=== PATIENT | female | born 1950 | race Asian ===

== ENCOUNTER 2018-11-16 18:17 | Emergency (ER) | payer MEDICARE ==
[~2018-11-16] VITALS: Ht 157.5 cm; Wt 52.2 kg
[2018-11-16] MEDS ORDERED: GLIPIZIDE5 MG ORAL (18:19)
[2018-11-16] MEDS ORDERED: METFORMIN HCL500 M1 ORAL (18:19)
--- NOTE | 2018-11-16 18:20 | NUR ---
ED Nurse Note: Pt came to Ed from home via ambulance RA [id number]. Pt is A&Ox4, c/o productive cough and chest tightness for 9 days. Denies chest pain. Pt is sob, SPo2 99% on room air. VSS.
[2018-11-16 18:25] VITALS: BP 102/66
[2018-11-16 19:02] LABS: BASOPHILS % (AUTO) 0.7 % (0.0-2.0); EOSINOPHILS % (AUTO) 0.9 % (0.0-3.0); HEMATOCRIT 39.2 % (37.0-47.0); HEMOGLOBIN 13.6 G/DL (12.0-16.0); LYMPHOCYTES % (AUTO) 10.5 % (20.0-45.0); MEAN CORPUSCULAR VOLUME 87 FL (80-99); MONOCYTES % (AUTO) 8.5 % (1.0-10.0); NEUTROPHILS % (AUTO) 79.4 % (45.0-75.0); PLATELET COUNT 255 K/UL (150-450); RED CELL DISTRIBUTION WIDTH 12.4 % (11.6-14.8); WHITE BLOOD COUNT 12.2 K/UL (4.8-10.8)
--- NOTE | 2018-11-16 19:08 | NUR ---
HAND-OFF: Report given to JOSE Scanlon.
[2018-11-16] MEDS ORDERED: Albuterol ud Inhalation HHN ONE (19:15)
--- NOTE | 2018-11-16 19:15 | NUR ---
ED Nurse Note: Got report from JOSE Blair. RT by bed side, patient is geting treartment. Patient states "it's very difficulty to clean outsecreation".
[2018-11-16 19:18] LABS: ANION GAP 10 mmol/L (5-15); BLOOD UREA NITROGEN 13 mg/dL (7-18); CALCIUM 9.3 MG/DL (8.5-10.1); CARBON DIOXIDE 24 MMOL/L (21-32); CHLORIDE 101 MMOL/L (98-107); POTASSIUM 4.4 MMOL/L (3.5-5.1); SODIUM 135 MMOL/L (136-145)
[2018-11-16 19:32] LABS: ALANINE AMINOTRANSFERASE 13 U/L (12-78); ALBUMIN 3.1 G/DL (3.4-5.0); ALBUMIN/GLOBULIN RATIO 0.8 (1.0-2.7); ALKALINE PHOSPHATASE 70 U/L (46-116); ASPARTATE AMINO TRANSFERASE 15 U/L (15-37); BILIRUBIN,TOTAL 0.5 MG/DL (0.2-1.0); CKMB 0.6 NG/ML (0.0-3.6); CREATINE KINASE 28 U/L (26-308)
--- NOTE | 2018-11-16 19:36 | Emergency Room Report ---
History of Present Illness General Chief Complaint: Upper Respiratory Illness Source: Patient, EMS Present Illness HPI Patient presents with complaints of shortness of breath reports that she was just discharged from [facility] for the same condition as she has now Has been having increased cough shortness of breath Denies any vomiting or diarrhea denies any fevers Denies any recent travel Initially the patient presents in some acute distress and most of the past history is not able to be obtained Allergies: Coded Allergies: NSAIDS (NON-STEROIDAL ANTI-INFLAMMA (Verified Allergy, Mild, 11/16/18) PENICILLINS (Verified Allergy, Unknown, 11/16/18) Patient History Past Medical History: see triage record Pertinent Family History: none Reviewed Nursing Documentation: PMH: Agreed; PSxH: Agreed Nursing Documentation-PMH Past Medical History: No History, Except For Hx Hypertension: Yes Hx Asthma: Yes Hx Diabetes: Yes Review of Systems All Other Systems: negative except mentioned in HPI Physical Exam Vital Signs Date Time Temp Pulse Resp B/P (MAP) Pulse Ox O2 Delivery O2 Flow Rate FiO2 11/16/18 18:17 97.3 91 15 95 Room Air 11/16/18 18:25 102/66 11/16/18 19:10 21 Sp02 EP Interpretation: reviewed, normal General Appearance: moderate distress - Short of breath Head: normocephalic, atraumatic Eyes: bilateral eye PERRL, bilateral eye EOMI ENT: normal pharynx Neck: supple Respiratory: crackles - Bilaterally, tachypneic Cardiovascular #1: regular rate, rhythm Gastrointestinal: non tender, soft Genitourinary: no CVA tenderness Musculoskeletal: normal inspection Neurologic: alert, oriented x3, responsive Skin: normal color, no rash Lymphatic: no adenopathy Medical Decision Making Diagnostic Impression: Primary Impression: CHF (congestive heart failure) ER Course Patient is a fairly complex patient with multiple differential to consideration including but not limited to cardiac cardiopulmonary and vascular emergencies Patient's x-ray shows evidence of CHF BNP also significantly elevated Patient received Lasix prior to this also required breathing treatment and appears to have done significantly better At this time requires admission patient is medically stabilized for appropriate transfer to primary facility Labs Test 11/16/18 18:45 White Blood Count 12.2 K/UL (4.8-10.8) Red Blood Count 4.50 M/UL (4.20-5.40) Hemoglobin 13.6 G/DL (12.0-16.0) Hematocrit 39.2 % (37.0-47.0) Mean Corpuscular Volume 87 FL (80-99) Mean Corpuscular Hemoglobin 30.2 PG (27.0-31.0) Mean Corpuscular Hemoglobin Concent 34.7 G/DL (32.0-36.0) Red Cell Distribution Width 12.4 % (11.6-14.8) Platelet Count 255 K/UL (150-450) Mean Platelet Volume 6.2 FL (6.5-10.1) Neutrophils (%) (Auto) 79.4 % (45.0-75.0) Lymphocytes (%) (Auto) 10.5 % (20.0-45.0) Monocytes (%) (Auto) 8.5 % (1.0-10.0) Eosinophils (%) (Auto) 0.9 % (0.0-3.0) Basophils (%) (Auto) 0.7 % (0.0-2.0) Sodium Level 135 MMOL/L (136-145) Potassium Level 4.4 MMOL/L (3.5-5.1) Chloride Level 101 MMOL/L (98-107) Carbon Dioxide Level 24 MMOL/L (21-32) Anion Gap 10 mmol/L (5-15) Blood Urea Nitrogen 13 mg/dL (7-18) Creatinine 1.0 MG/DL (0.55-1.30) Estimat Glomerular Filtration Rate 54.8 mL/min (>60) Glucose Level 259 MG/DL (74-106) Lactic Acid Level 1.60 mmol/L (0.4-2.0) Calcium Level 9.3 MG/DL (8.5-10.1) Total Bilirubin 0.5 MG/DL (0.2-1.0) Aspartate Amino Transf (AST/SGOT) 15 U/L (15-37) Alanine Aminotransferase (ALT/SGPT) 13 U/L (12-78) Alkaline Phosphatase 70 U/L (46-116) Total Creatine Kinase 28 U/L (26-308) Creatine Kinase MB 0.6 NG/ML (0.0-3.6) Creatine Kinase MB Relative Index 2.1 Troponin I 0.017 ng/mL (0.000-0.056) Pro-B-Type Natriuretic Peptide 15310 pg/mL (0-125) Total Protein 7.1 G/DL (6.4-8.2) Albumin 3.1 G/DL (3.4-5.0) Globulin 4.0 g/dL Albumin/Globulin Ratio 0.8 (1.0-2.7) Lipase 590 U/L (73-393) EKG Diagnostic Results Rate: normal Rhythm: NSR ST Segments: other - Nonspecific interventricular block nonspecific ST and T- wave changes Rhythm Strip Diag. Results EP Interpretation: yes Rate: 88 Rhythm: NSR, no PVC's, no ectopy Chest X-Ray Diagnostic Results Chest X-Ray Diagnostic Results : Chest X-Ray Ordered: Yes # of Views/Limited/Complete: 1 View Indication: Shortness of Breath EP Interpretation: Yes Interpretation: no consolidation, no effusion, other - Cardiomegaly, pulmonary congestion Impression: Other - CHF Electronically Signed by: Alyx Werner DO Last Vital Signs Date Time Temp Pulse Resp B/P (MAP) Pulse Ox O2 Delivery O2 Flow Rate FiO2 11/16/18 19:23 87 18 100 Room Air 21 11/16/18 18:25 97.4 102/66 Status: improved Disposition: XFER SHT-TRM HOSP Condition: Improved Referrals: NOT CHOSEN IPA/,REFERRING (PCP) Alyx Werner DO November 16, 2018 19:36
[2018-11-16 23:13] VITALS: BP 105/65
[2018-11-16 23:32] VITALS: BP 115/67
--- NOTE | 2018-11-16 23:40 | NUR ---
ED Nurse Note: Patient was transfered to [facility] by [facility] ambulance. AAO x4, VSS at this time. All petient's belongings were transfered with the patient.
--- NOTE | 2018-11-17 11:27 | Diagnostic Imaging Report ---
Indication: Dyspnea Comparison: None A single view chest radiograph was obtained. Findings: No definite infiltrate or pulmonary vascular congestion identified. There are surgical clips in the right axilla. The heart is enlarged. The aorta is mildly enlarged consistent with atherosclerotic vascular disease. The bones are osteopenic. Impression: No acute disease
--- NOTE | 2018-11-18 19:37 | Cardiology Report ---
APPROVED REPORT EKG Measurement Heart [id number] [id number] Normal sinus rhythm Possible Left atrial enlargement Left axis deviation Nonspecific intraventricular block Possible Anterolateral infarct, age undetermined Abnormal ECG
== END 2018-11-16 23:43 | disposition short-term general hospital (02) ==
LOC: EDBD 18:17 → EMR 18:49
DX: I50.9 Heart failure, unspecified (principal); R05 Cough; I11.0 Hypertensive heart disease with heart failure; E11.9 Type 2 diabetes mellitus without complications; Z88.0 Allergy status to penicillin; Z88.6 Allergy status to analgesic agent; I51.7 Cardiomegaly
CPT/HCPCS: 36415; 71045; 80053; 82550; 82553; 83605; 83690; 83880; 84484; 85025; 87040; 93005; 94640; 94664; 96374; 99285; J1940

== ENCOUNTER 2019-01-08 09:52 | Emergency (ER) | payer MEDICARE, MEDICAID ==
[~2019-01-08] VITALS: Ht 162.6 cm; Wt 52.2 kg
[~2019-01-08 09:52] MED LIST: GLIPIZIDE5 MG ORAL; METFORMIN HCL500 M1 ORAL
[2019-01-08 09:59] VITALS: BP 114/65
[2019-01-08] MEDS ORDERED: Solu-MEDROL 125mg Inj IVP ONE (10:00)
--- NOTE | 2019-01-08 10:04 | Emergency Room Report ---
History of Present Illness General Chief Complaint: Dyspnea/Respdistress Source: Medical Record Present Illness HPI 68-year-old female past medical history of COPD, hypertension, hyperlipidemia, diabetes presents with shortness of breath started 30 minutes prior to arrival she denies any aggravating or alleviating factors, she does endorse a constant shortness of breath, patient states she was exposed to secondhand smoke from her in the past, and was diagnosed with COPD, she denies any fevers chills cough congestion, chest pain, abdominal pain, she endorses only shortness of breath Allergies: Coded Allergies: NSAIDS (NON-STEROIDAL ANTI-INFLAMMA (Verified Allergy, Mild, 11/16/18) PENICILLINS (Verified Allergy, Unknown, 11/16/18) Patient History Past Medical History: see triage record Past Surgical History: other - Breast surgery Pertinent Family History: asthma, COPD Now: No Reviewed Nursing Documentation: PMH: Agreed; PSxH: Agreed Nursing Documentation-PMH Past Medical History: No History, Except For Hx Hypertension: Yes Hx Asthma: Yes Hx COPD: Yes Hx Diabetes: Yes Review of Systems Respiratory: Reports: shortness of breath Cardiovascular: Denies: chest pain All Other Systems: negative except mentioned in HPI Physical Exam Vital Signs Date Time Temp Pulse Resp B/P (MAP) Pulse Ox O2 Delivery O2 Flow Rate FiO2 01/08/19 09:48 88 35 114/65 (81) 100 Non-Rebreather 15.0 Sp02 EP Interpretation: reviewed, normal General Appearance: no apparent distress, alert, GCS 15, non-toxic Head: normocephalic, atraumatic Eyes: bilateral eye normal inspection, bilateral eye PERRL ENT: hearing grossly normal, normal pharynx, no angioedema, normal voice Neck: full range of motion, supple/symm/no masses Respiratory: chest non-tender, lungs clear, speaking full sentences, wheezing, expiration Cardiovascular #1: regular rate, rhythm, no edema Gastrointestinal: non tender, soft, non-distended, no guarding, no rebound Rectal: deferred Genitourinary: normal inspection, no CVA tenderness Musculoskeletal: back normal, gait/station normal, normal range of motion, non- tender, calf tenderness Neurologic: alert, oriented x3, responsive, motor strength/tone normal, sensory intact, speech normal Psychiatric: judgement/insight normal, memory normal, mood/affect normal, no suicidal/homicidal ideation Lymphatic: no adenopathy Medical Decision Making Diagnostic Impression: Primary Impression: COPD with exacerbation Additional Impression: CHF exacerbation ER Course Patient with history of CHF, COPD, wheezing on exam Chest x-ray shows no acute cardiopulmonary processes, large lung volumes, proBNP was elevated, patient improved with breathing treatments, will admit patient for COPD/CHF exacerbation Patient transferred to [facility] Patient accepted by Dr. Burns Laboratory Tests Test 01/08/19 10:03 White Blood Count 5.4 K/UL (4.8-10.8) Red Blood Count 4.15 M/UL (4.20-5.40) L Hemoglobin 12.9 G/DL (12.0-16.0) Hematocrit 39.0 % (37.0-47.0) Mean Corpuscular Volume 94 FL (80-99) Mean Corpuscular Hemoglobin 31.1 PG (27.0-31.0) H Mean Corpuscular Hemoglobin Concent 33.0 G/DL (32.0-36.0) Red Cell Distribution Width 12.8 % (11.6-14.8) Platelet Count 187 K/UL (150-450) Mean Platelet Volume 7.0 FL (6.5-10.1) Neutrophils (%) (Auto) 48.1 % (45.0-75.0) Lymphocytes (%) (Auto) 31.7 % (20.0-45.0) Monocytes (%) (Auto) 13.7 % (1.0-10.0) H Eosinophils (%) (Auto) 5.3 % (0.0-3.0) H Basophils (%) (Auto) 1.2 % (0.0-2.0) Sodium Level 144 MMOL/L (136-145) Potassium Level 3.9 MMOL/L (3.5-5.1) Chloride Level 108 MMOL/L (98-107) H Carbon Dioxide Level 27 MMOL/L (21-32) Anion Gap 10 mmol/L (5-15) Blood Urea Nitrogen 11 mg/dL (7-18) Creatinine 1.1 MG/DL (0.55-1.30) Estimate Glomerular Filtration Rate 49.1 mL/min (>60) Glucose Level 166 MG/DL (74-106) H Calcium Level 9.0 MG/DL (8.5-10.1) Total Bilirubin 0.8 MG/DL (0.2-1.0) Aspartate Amino Transferase (AST) 24 U/L (15-37) Alanine Aminotransferase (ALT) 8 U/L (12-78) L Alkaline Phosphatase 65 U/L (46-116) Total Creatine Kinase 54 U/L (26-308) Creatine Kinase MB 1.0 NG/ML (0.0-3.6) Creatine Kinase MB Relative Index 1.8 Troponin I 0.008 ng/mL (0.000-0.056) Pro-B-Type Natriuretic Peptide 8286 pg/mL (0-125) H Total Protein 6.8 G/DL (6.4-8.2) Albumin 3.4 G/DL (3.4-5.0) Globulin 3.4 g/dL Albumin/Globulin Ratio 1.0 (1.0-2.7) EKG Diagnostic Results EKG Time: 09:52 EP Interpretation: Normal sinus rhythm, left axis deviation, left bundle branch block Rate: normal Rhythm: NSR ST Segments: no acute changes ASA given to the pt in ED: No Chest X-Ray Diagnostic Results Chest X-Ray Diagnostic Results : Chest X-Ray Ordered: Yes # of Views/Limited/Complete: 1 View Indication: Shortness of Breath EP Interpretation: Yes Interpretation: no consolidation, no effusion, no acute cardiopulmonary disease Impression: No acute disease Electronically Signed by: Timmy Robb MD Last Vital Signs Date Time Temp Pulse Resp B/P (MAP) Pulse Ox O2 Delivery O2 Flow Rate FiO2 01/08/19 09:48 88 35 114/65 (81) 100 Non-Rebreather 15.0 Disposition: [facility] - [facility] Condition: Improved Timmy Robb M.D. Jan 08, 2019 10:04
[2019-01-08] MEDS ORDERED: FUROSEMIDE20 M1 ORAL (10:05)
[2019-01-08] MEDS ORDERED: cholesterol med (10:05)
--- NOTE | 2019-01-08 10:07 | NUR ---
ED Nurse Note: Pt BIBA from home due to SOB x 30 mins prior to arrival, no complaint of CP. 5mg Albuterol given by paramedics. Hx of Asthma, COPD. BS 163. SAT 99% RA upon arrival. Wheezing on inspiratory and expiratory. AOx4, VSS lillie. Will cont to monitor.
--- NOTE | 2019-01-08 10:08 | NUR ---
ED Nurse Note: X-ray tech at bedside for imaging.
[2019-01-08] MEDS: Ipratropium 0.02% Inh Soln 2.5ml UD HHN SCH ×3 (10:18→10:46)
[2019-01-08] MEDS: Albuterol ud Inhalation HHN SCH ×3 (10:18→10:46)
[2019-01-08 10:25] LABS: ANION GAP 10 mmol/L (5-15); BLOOD UREA NITROGEN 11 mg/dL (7-18); CARBON DIOXIDE 27 MMOL/L (21-32); CHLORIDE 108 MMOL/L (98-107); CREATININE 1.1 MG/DL (0.55-1.30); POTASSIUM 3.9 MMOL/L (3.5-5.1); SODIUM 144 MMOL/L (136-145)
[2019-01-08 10:28] LABS: BASOPHILS % (AUTO) 1.2 % (0.0-2.0); EOSINOPHILS % (AUTO) 5.3 % (0.0-3.0); HEMOGLOBIN 12.9 G/DL (12.0-16.0); LYMPHOCYTES % (AUTO) 31.7 % (20.0-45.0); MEAN CORPUSCULAR VOLUME 94 FL (80-99); MONOCYTES % (AUTO) 13.7 % (1.0-10.0); NEUTROPHILS % (AUTO) 48.1 % (45.0-75.0); PLATELET COUNT 187 K/UL (150-450); RED BLOOD COUNT 4.15 M/UL (4.20-5.40); RED CELL DISTRIBUTION WIDTH 12.8 % (11.6-14.8); WHITE BLOOD COUNT 5.4 K/UL (4.8-10.8)
[2019-01-08 10:38] LABS: ALANINE AMINOTRANSFERASE 8 U/L (12-78); ALBUMIN 3.4 G/DL (3.4-5.0); ALKALINE PHOSPHATASE 65 U/L (46-116); ASPARTATE AMINO TRANSFERASE 24 U/L (15-37); BILIRUBIN,TOTAL 0.8 MG/DL (0.2-1.0); CREATINE KINASE 54 U/L (26-308)
[2019-01-08 12:05] VITALS: BP 115/49
--- NOTE | 2019-01-08 14:03 | NUR ---
report given to brenda at [facility] patient will be transferd as [facility] by [facility]
[2019-01-08 14:10] VITALS: BP 130/80
--- NOTE | 2019-01-10 16:05 | Cardiology Report ---
APPROVED REPORT EKG Measurement Heart [id number] ME [id number] [id number] Normal sinus rhythm Possible Left atrial enlargement Left axis deviation Left bundle branch block Abnormal ECG
== END 2019-01-08 14:13 | disposition short-term general hospital (02) ==
LOC: EDBD 09:52 → EMR 10:24
DX: J44.1 Chronic obstructive pulmonary disease with (acute) exacerbation (principal); E11.9 Type 2 diabetes mellitus without complications; E78.5 Hyperlipidemia, unspecified; I11.0 Hypertensive heart disease with heart failure; I50.9 Heart failure, unspecified; Z88.0 Allergy status to penicillin; Z88.6 Allergy status to analgesic agent; I44.7 Left bundle-branch block, unspecified
CPT/HCPCS: 36415; 71045; 80053; 82550; 82553; 83880; 84484; 85025; 93005; 94640; 94664; 96374; 99284; J2930

== ENCOUNTER 2019-02-07 19:09 | Emergency (ER) | payer MEDICAID, MEDICARE ==
[~2019-02-07] VITALS: Ht 149.9 cm; Wt 52.2 kg
[~2019-02-07 19:09] MED LIST changes: +FUROSEMIDE20 M1 ORAL; +cholesterol med
--- NOTE | 2019-02-07 19:18 | Emergency Room Report ---
History of Present Illness General Chief Complaint: Altered Level of Consciousness Source: Patient, EMS Present Illness HPI 68-year-old female presents with generalized weakness, x3 days, patient states she feels febrile and more weak, no known aggravating or relieving factors, severity is severe, patient unable to give a proper history secondary to her clinical condition she feels very weak and tired. She thinks she may be coughing. Allergies: Coded Allergies: NSAIDS (NON-STEROIDAL ANTI-INFLAMMA (Verified Allergy, Mild, 11/16/18) PENICILLINS (Verified Allergy, Unknown, 11/16/18) Patient History Limited by: medical condition - Generalized weakness unable to give a full history AMS Past Medical History: see triage record Reviewed Nursing Documentation: PMH: Agreed; PSxH: Agreed Nursing Documentation-PMH Past Medical History: No History, Except For Hx Cardiac Problems: Yes Hx Hypertension: Yes Hx Asthma: Yes Hx Diabetes: Yes Review of Systems All Other Systems: limited - Generalized weakness unable to give a full history AMS Physical Exam Last 24 Hour Vital Signs Date Time Temp Pulse Resp B/P (MAP) Pulse Ox O2 Delivery O2 Flow Rate FiO2 02/07/19 19:20 82 16 Room Air 02/07/19 19:20 101.6 16 105/72 99 Room Air 02/07/19 19:04 82 16 105/72 (83) 99 Room Air Sp02 EP Interpretation: reviewed, normal General Appearance: alert, GCS 15, non-toxic, other - Tired appearing Head: normocephalic, atraumatic Eyes: bilateral eye PERRL, bilateral eye EOMI ENT: uvula midline, dry mucus membranes Neck: supple, thyroid normal, supple/symm/no masses Respiratory: lungs clear, no respiratory distress, no retraction, no accessory muscle use Cardiovascular #1: normal peripheral pulses, regular rate, rhythm, no edema, no gallop, no murmur Gastrointestinal: non tender, soft, no guarding, no rebound Musculoskeletal: normal inspection Neurologic: alert, responsive Psychiatric: mood/affect normal Skin: no rash, warm/dry Medical Decision Making Diagnostic Impression: Primary Impression: Sepsis Qualified Codes: A41.9 - Sepsis, unspecified organism Additional Impression: Right lower lobe pulmonary infiltrate ER Course 68-year-old female presents with weakness, x3 days, cough, patient found to have a right lower lobe pneumonia on chest x-ray. antibiotics started, patient febrile in the ED, will transfer patient to [place] Lactic acid normal Patient with right lower lobe pneumonia, patient to be admitted to [place], spoke with Dr. Rausch refer to call record Laboratory Tests Test 02/07/19 18:58 02/07/19 20:58 White Blood Count 6.7 K/UL (4.8-10.8) Red Blood Count 4.47 M/UL (4.20-5.40) Hemoglobin 13.4 G/DL (12.0-16.0) Hematocrit 40.7 % (37.0-47.0) Mean Corpuscular Volume 91 FL (80-99) Mean Corpuscular Hemoglobin 29.9 PG (27.0-31.0) Mean Corpuscular Hemoglobin Concent 32.8 G/DL (32.0-36.0) Red Cell Distribution Width 12.1 % (11.6-14.8) Platelet Count 205 K/UL (150-450) Mean Platelet Volume 5.8 FL (6.5-10.1) L Neutrophils (%) (Auto) 61.4 % (45.0-75.0) Lymphocytes (%) (Auto) 21.2 % (20.0-45.0) Monocytes (%) (Auto) 15.0 % (1.0-10.0) H Eosinophils (%) (Auto) 0.9 % (0.0-3.0) Basophils (%) (Auto) 1.6 % (0.0-2.0) Prothrombin Time 12.9 SEC (9.30-11.50) H Prothrombin Time INR 1.2 (0.9-1.1) H PTT 28 SEC (23-33) Sodium Level 133 MMOL/L (136-145) L Potassium Level 4.2 MMOL/L (3.5-5.1) Chloride Level 102 MMOL/L (98-107) Carbon Dioxide Level 23 MMOL/L (21-32) Anion Gap 8 mmol/L (5-15) Blood Urea Nitrogen 16 mg/dL (7-18) Creatinine 1.2 MG/DL (0.55-1.30) Estimate Glomerular Filtration Rate 44.4 mL/min (>60) Glucose Level 177 MG/DL (74-106) H Lactic Acid Level 1.90 mmol/L (0.4-2.0) Calcium Level 9.2 MG/DL (8.5-10.1) Phosphorus Level 2.8 MG/DL (2.5-4.9) Magnesium Level 1.4 MG/DL (1.8-2.4) L Total Bilirubin 1.3 MG/DL (0.2-1.0) H Direct Bilirubin 0.5 MG/DL (0.0-0.3) H Aspartate Amino Transferase (AST) 139 U/L (15-37) H Alanine Aminotransferase (ALT) 84 U/L (12-78) H Alkaline Phosphatase 68 U/L (46-116) Total Creatine Kinase 39 U/L (26-308) Creatine Kinase MB < 0.5 NG/ML (0.0-3.6) Creatine Kinase MB Relative Index 1.2 Troponin I 0.013 ng/mL (0.000-0.056) Pro-B-Type Natriuretic Peptide 89564 pg/mL (0-125) H Total Protein 7.1 G/DL (6.4-8.2) Albumin 3.5 G/DL (3.4-5.0) Globulin 3.6 g/dL Albumin/Globulin Ratio 1.0 (1.0-2.7) Lipase 389 U/L (73-393) Urine Color Pending Urine Appearance Pending Urine pH Pending Urine Specific [place] Pending Urine Protein Pending Urine Glucose (UA) Pending Urine Ketones Pending Urine Blood Pending Urine Nitrite Pending Urine Bilirubin Pending Urine Urobilinogen Pending Urine Leukocyte Esterase Pending EKG Diagnostic Results EKG Time: 19:19 EP Interpretation: NSR, rate 83, QTc 495, left axis deviation, no acute ST elevation Rate: normal Rhythm: NSR ST Segments: other - LBBB, no acute st elevations Rhythm Strip Diag. Results Rhythm Strip Time: 20:48 EP Interpretation: yes Rate: 80 Rhythm: NSR, no PVC's, no ectopy Chest X-Ray Diagnostic Results Chest X-Ray Diagnostic Results : Chest X-Ray Ordered: Yes # of Views/Limited/Complete: 1 View Indication: Shortness of Breath Interpretation: other - right lobe consolidation Impression: Other - right lobe pneumonia Last Vital Signs Date Time Temp Pulse Resp B/P (MAP) Pulse Ox O2 Delivery O2 Flow Rate FiO2 02/07/19 19:04 82 16 105/72 (83) 99 Room Air Disposition: XFER SHT-TRM [facility] - [place] Condition: Stable Timmy Robb MD Feb 07, 2019 19:18
[2019-02-07 19:20] VITALS: BP 105/72
--- NOTE | 2019-02-07 19:20 | NUR ---
ED Nurse Note: Patient was BIBA from home due to ALOC. Per daughter she was diagnosed with pneumonia 2 month ago, and they think it is pneumonia again. Patient presented with fever 101.6 rectal, other VSS at this time. AAO x2, skin is dry warm to touch, pt's BS 166. Patient has diminished lungs sownd in all 4 loabs.
--- NOTE | 2019-02-07 19:41 | Diagnostic Imaging Report ---
EXAM: XR Chest, 1 View CLINICAL HISTORY: AMS TECHNIQUE: Frontal view of the chest. COMPARISON: 01/08/19 chest x-ray FINDINGS: Lungs: Ill-defined patchy opacities in the bilateral lungs appear new. There is tenting of the right diaphragm suggesting right lower lobe atelectatic changes. Pleural space: Unremarkable. No pneumothorax. Heart: Slightly worse cardiomegaly and enlargement of the pulmonary arteries. Mediastinum: Unremarkable. Bones/joints: Unremarkable. Soft tissues: Right axillar surgical clips. IMPRESSION: Cardiomegaly and ill-defined bilateral patchy lung opacities.. Query developing pneumonitis or pneumonia.
[2019-02-07] MEDS ORDERED: Cefepime HCl 2 GM in D5W 55 ML IVPB ONE (19:45)
[2019-02-07] MEDS ORDERED: Vancomycin 1 GM in NS 275 ML IVPB ONE (19:45)
[2019-02-07 20:05] LABS: BASOPHILS % (AUTO) 1.6 % (0.0-2.0); EOSINOPHILS % (AUTO) 0.9 % (0.0-3.0); HEMATOCRIT 40.7 % (37.0-47.0); HEMOGLOBIN 13.4 G/DL (12.0-16.0); LYMPHOCYTES % (AUTO) 21.2 % (20.0-45.0); MEAN CORPUSCULAR VOLUME 91 FL (80-99); NEUTROPHILS % (AUTO) 61.4 % (45.0-75.0); PLATELET COUNT 205 K/UL (150-450); RED BLOOD COUNT 4.47 M/UL (4.20-5.40); RED CELL DISTRIBUTION WIDTH 12.1 % (11.6-14.8); WHITE BLOOD COUNT 6.7 K/UL (4.8-10.8)
[2019-02-07 20:20] LABS: INR 1.2 (0.9-1.1)
[2019-02-07 20:22] LABS: ANION GAP 8 mmol/L (5-15); BLOOD UREA NITROGEN 16 mg/dL (7-18); CALCIUM 9.2 MG/DL (8.5-10.1); CARBON DIOXIDE 23 MMOL/L (21-32); CHLORIDE 102 MMOL/L (98-107); CREATININE 1.2 MG/DL (0.55-1.30); POTASSIUM 4.2 MMOL/L (3.5-5.1); SODIUM 133 MMOL/L (136-145)
[2019-02-07 20:37] LABS: ALANINE AMINOTRANSFERASE 84 U/L (12-78); ALBUMIN 3.5 G/DL (3.4-5.0); ALKALINE PHOSPHATASE 68 U/L (46-116); ASPARTATE AMINO TRANSFERASE 139 U/L (15-37); BILIRUBIN,TOTAL 1.3 MG/DL (0.2-1.0); CKMB < 0.5 NG/ML (0.0-3.6); CREATINE KINASE 39 U/L (26-308); PHOSPHORUS 2.8 MG/DL (2.5-4.9)
[2019-02-07 20:40] LABS: BILIRUBIN,DIRECT 0.5 MG/DL (0.0-0.3)
--- NOTE | 2019-02-07 20:47 | NUR ---
ED Nurse Note: Patient running fever 101.6, rectal.
[2019-02-07] MEDS ORDERED: Morphine Sulfate 4mg/ml Inj (IV USE ONLY) IVP ONE (21:00)
[2019-02-07 21:05] LABS: APPEARANCE,URINE SLIGHTLY CLOUDY; BILIRUBIN, URINE NEGATIVE (NEGATIVE); GLUCOSE, URINE (UA) NEGATIVE (NEGATIVE); KETONES,URINE 1+ (NEGATIVE); LEUKOCYTE ESTERASE ,URINE 2+ (NEGATIVE); NITRITE,URINE NEGATIVE (NEGATIVE); PH,URINE 6 (4.5-8.0); PROTEIN,URINE 3+ (NEGATIVE); UROBILINOGEN,URINE NORMAL MG/DL (0.0-1.0)
[2019-02-07 21:06] LABS: COLOR,URINE YELLOW
[2019-02-07 21:20] VITALS: BP 98/67
[2019-02-08 00:49] VITALS: BP 106/67
--- NOTE | 2019-02-08 00:52 | NUR ---
ED Nurse Note: Patient was transfered to the [facility] [place] [facility] due to pneumonia. [id number] by ACLS protocol. Patient AAO x2, VSS at this time, skin is dry warm to touch. Patient was transfered with all belongings.
== END 2019-02-08 00:55 | disposition short-term general hospital (02) ==
LOC: EDBD 19:09 → EMR 19:46
DX: A41.9 Sepsis, unspecified organism (principal); I10 Essential (primary) hypertension; J45.909 Unspecified asthma, uncomplicated; E11.9 Type 2 diabetes mellitus without complications; Z88.8 Allergy status to other drugs, medicaments and biological substances; Z88.0 Allergy status to penicillin; J18.1 Lobar pneumonia, unspecified organism
CPT/HCPCS: 36415; 71045; 80053; 81003; 82248; 82550; 82553; 83605; 83690; 83735; 83880; 84100; 84484; 85025; 85610; 85730; 87040; 87086; 87181; 93005; 96361; 96365; 96367; 96375; 99285; J2270; J2405; J3370; J7040; J7050